=== PATIENT | male | born 1985 | race Caucasian/White ===

== ENCOUNTER 2025-04-27 16:09 | Emergency (ER) | payer OTHER ==
--- NOTE | 2025-04-27 16:22 | ERPHSYRPT ---
- History of Present Illness Time Seen by Provider: 04/27/25 16:22 Source: patient, family Exam Limitations: no limitations Physician History: This is a 39-year-old white male patient who arrives for private vehicle with complaint of left knee pain and swelling that has been present for approximately 5 days. 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 He started having pain and swelling in the knee. He continued working for several hours. When he completed the task/job, he was having trouble ambulating because of the pain and swelling that has been present. He did not suffer any fall. He did not have blunt trauma to the left knee. At a young age, patient states that he dislocated his left kneecap. Method of Injury: other (Lifting pallets), twisted Occurred: days ago (Approximately 5 days ago) Quality: constant, aching Severity of Pain-Max: mild (To moderate) Severity of Pain-Current: mild (To moderate) Lower Extremities Pain: knee: left (Anteriorly) Modifying Factors: Improves With: movement Associated Symptoms: other (Hurts to bear weight but can do so) Allergies/Adverse Reactions: No Known Drug Allergies Allergy (Unverified 04/27/25 16:18) Travel Risk - International Travel Have you traveled outside of the country in past 3 weeks: No - Emerging Infectious Disease Are you exhibiting symptoms associated with any current EIDs: No - Review of Systems Constitutional: No Symptoms Eyes: No Symptoms Ears, Nose, & Throat: No Symptoms Respiratory: No Symptoms Cardiac: No Symptoms Abdominal/Gastrointestinal: No Symptoms Genitourinary Symptoms: No Symptoms Musculoskeletal: Injury (Left knee), Joint Pain (Left knee), Joint Swelling (Left knee) Skin: No Symptoms Neurological: No Symptoms Psychological: No Symptoms Endocrine: No Symptoms Hematologic/Lymphatic: No Symptoms Immunological/Allergic: No Symptoms All Other Systems: Reviewed and Negative - Past Medical History Pertinent Past Medical History: No - Nursing Vital Signs Nursing Vital Signs: Initial Vital Signs Temperature 98 F 04/27/25 16:10 Pulse Rate 100 H 04/27/25 16:10 Respiratory Rate 16 04/27/25 16:10 Blood Pressure 149/94 04/27/25 16:10 O2 Sat by Pulse Oximetry 99 04/27/25 16:10 Pain Scale Pain Intensity 7 - Physical Exam General Appearance: no apparent distress, alert, anxiety Eyes, Ears, Nose, Throat Exam: normal ENT inspection, moist mucous membranes Neck Exam: normal inspection, non-tender, supple, full range of motion Cardiovascular/Respiratory Exam: chest non-tender, no respiratory distress Gastrointestinal/Abdominal Exam: non-tender Back Exam: normal inspection, normal range of motion, No CVA tenderness, No vertebral tenderness Hips Exam: bilateral: non-tender, normal inspection, normal range of motion, no evidence of injury Legs Exam: bilateral leg: non-tender, normal inspection, normal range of motion, no evidence of injury Knees Exam: right knee: non-tender, normal inspection, normal range of motion, no evidence of injury, left knee: bone tenderness (Anteriorly), soft tissue tenderness (Anteriorly), swelling (Anteriorly) Ankle Exam: bilateral ankle: non-tender, normal inspection, normal range of motion, no evidence of injury Foot Exam: bilateral foot: non-tender, normal inspection, normal range of motion, no evidence of injury Neuro/Tendon Exam: normal sensation, normal motor functions, normal tendon functions, no evidence tendon injury Mental Status Exam: alert, oriented x 3, cooperative Skin Exam: normal color, warm, dry SpO2 Interpretation: normal O2 Delivery: Room Air - Course Nursing assessment & vital signs reviewed: Yes Ordered Tests: Active Orders 24 hr Category Date Time Status KNEE (3 VIEWS) Stat Exams 04/27/25 16:43 Taken Medication Summary Discontinued Medications Generic Name Dose Route Start Last Admin Trade Name Arturo PRN Reason Stop Dose Admin Ibuprofen 600 mg 04/27/25 16:43 04/27/25 16:54 Ibuprofen 600 Mg Tablet PO 04/27/25 16:44 600 mg STAT ONE Administration Ibuprofen Confirm 04/27/25 16:52 Ibuprofen 600 Mg Tablet Administered 04/27/25 16:53 Dose 600 mg .ROUTE .STK-MED ONE Oxycodone/Acetaminophen 1 tab 04/27/25 16:43 04/27/25 16:55 Oxycodone Hcl/Apap 5 Mg/325 Mg Tablet PO 04/27/25 16:44 Not Given STAT STA Oxycodone/Acetaminophen Confirm 04/27/25 16:52 Oxycodone Hcl/Apap 5 Mg/325 Mg Tablet Administered 04/27/25 16:53 Dose 1 tab .ROUTE .STK-MED ONE - Progress Progress: improved, pain not gone completely Progress Note: 04/27/25 16:50 My medical decision making and the assignment of low complexity of this patient's medical issue today is based on review of the patient's past medical history, review the patient's medication list, review the patient drug allergy list, history of present illness and physical findings on examination. The workup in this patient includes x-ray of the patient's left knee. We will also provide the patient with ibuprofen 600 mg orally and Percocet 5/325 orally. Differential diagnosis includes but is not limited to left knee strain, left knee fracture, left knee dislocation, left knee sprain 04/27/25 17:15 The patient refusing the Percocet pain medicine. I interpreted the patient's preliminary x-ray report on the 3 view left knee. There is a questionable acute versus chronic mildly dislocated left patella. Otherwise I see no acute fracture or dislocation in other areas. Counseled pt/family regarding: diagnosis, need for follow-up, rad results Medical Desision Making - Diagnostic Testing Diagnostic test were ordered, analyzed, and reviewed by me: Yes Radiological Interpretation: Interpreted by me - Risk of complications Low Risk: Low risk of morbidity from additional dx testing or treatment The pt has a mod risk of morbidity or mortality based on: Need for prescription drug management - Departure Departure Disposition: Home Clinical Impression: Left anterior knee pain, Swelling of left knee joint Condition: Stable Critical Care Time: No Referrals: DOCTOR,NO FAMILY [Primary Care Provider, UNKNOWN] - Follow up/PCP as directed Additional Instructions: Ice pack to tender area 3 times a day for the next 3 days. Take your medicat ions as prescribed. Wear the the immobilizer/brace. Make sure that you call your primary care provider on 04/30/2025, to make arrangements for follow-up appointment to be seen next week for further evaluation management. Ambulation as tolerated. When not ambulating, make sure the left knee is elevated above the level of your heart as discussed. Return to the emergency department if symptoms worsen Forms: Work/School Release Form Prescriptions: Orphenadrine Citrate 100 mg [Norflex 100 MG Tablet] 100 mg PO BID #10 tab
[2025-04-27 16:24] VITALS: TEMP 98
[2025-04-27] MEDS ORDERED: MOTRIN 600 MG ONE (16:52)
[2025-04-27] MEDS ORDERED: PERCOCET TABLET 5/325MG ONE (16:52)
[2025-04-27] MEDS: MOTRIN 600 MG PO ONE (16:54)
[2025-04-27] MEDS: PERCOCET TABLET 5/325MG PO STA (16:55)
[2025-04-27 17:21] VITALS: BP 127/89; PULSE 94; RESP 18; O2SAT 95
--- NOTE | 2025-04-27 17:41 | XRAY ---
Indication: Pain and swelling. Comparison: None 3 view left knee demonstrates nonspecific effusion and incidental tiny fabella. No other bony, articular, or soft tissue abnormalities.
== END 2025-04-27 17:28 | disposition home or self-care (01) ==
LOC: ED 16:09
DX: M25.562 Pain in left knee (principal); M25.462 Effusion, left knee; Z79.899 Other long term (current) drug therapy